=== PATIENT | female | born 1960 | race Caucasian/White ===

== ENCOUNTER 2020-03-27 13:21 | Emergency (ER) | payer BC ==
[~2020-03-27] VITALS: Ht 165.1 cm; Wt 99.8 kg
[~2020-03-27 13:21] MED LIST: LEVO75CA2 PO
[2020-03-27 13:25] VITALS: BP_SYST 142
[2020-03-27] MEDS ORDERED: KETOROLAC TROMETHAMINE 60 MG/2 ML VIAL IM ONE (15:15)
[2020-03-27] MEDS ORDERED: HYDROcodone/ACETAMIN 7.5-325 MG TAB PO ONE (15:15)
[2020-03-27 15:23] VITALS: BP_SYST 136
== END 2020-03-27 15:23 | disposition home or self-care (01) ==
LOC: SED 13:21
DX: S83.8X1A Sprain of other specified parts of right knee, initial encounter (principal); E07.9 Disorder of thyroid, unspecified; Z90.710 Acquired absence of both cervix and uterus; X58.XXXA Exposure to other specified factors, initial encounter; Y93.89 Activity, other specified; Y92.89 Other specified places as the place of occurrence of the external cause; Y99.8 Other external cause status
CPT/HCPCS: 73564; 96372; 99283; J1885